=== PATIENT | female | born 1990 ===

== ENCOUNTER 2019-08-30 08:41 | Inpatient (IN) | payer MEDICAID ==
[~2019-08-30] VITALS: Ht 165.1 cm; Wt 85.5 kg
[2019-08-30] MEDS ORDERED: loperamide 2mg capsule PO PRN (11:45)
[2019-08-30] MEDS ORDERED: mag hydrox/Alum hydrox/simeth 30ml oral suspension PO PRN (11:45)
[2019-08-30] MEDS ORDERED: acetaminophen 325mg tablet PO PRN ×2 (11:45)
[2019-08-30] MEDS ORDERED: magnesium hydroxide 30ml (MOM) UD suspension PO PRN (11:45)
[2019-08-30] MEDS: NICOTINE POLACRILEX 2 MG LOZENGE MM PRN ×3 (13:16→17:50)
[2019-08-30] MEDS: LORazepam 1 MG tablet PO PRN ×2 (13:16→13:36)
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
[2019-08-30 19:47] VITALS: BP 114/78
[2019-08-30] MEDS: traZODone 50mg tablet PO SCH (20:22)
[2019-08-30] MEDS: quetiapine 100mg tablet PO SCH (20:23)
[2019-08-30] MEDS: levetiracetam 250mg tablet PO SCH (20:23)
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
[2019-08-31] MEDS: levetiracetam 250mg tablet PO SCH ×2 (07:22→20:03)
[2019-08-31] MEDS: nicotine 21mg patch - 24 hr TD SCH (07:23)
[2019-08-31] MEDS: LORazepam 1 MG tablet PO PRN ×2 (07:36→13:27)
[2019-08-31 08:00] VITALS: BP 102/71
[2019-08-31 08:01] LABS: CHOLESTEROL 110 MG/DL (0-200); HDL CHOLESTEROL 37 MG/DL (35-60); LDL CHOLESTEROL 64 MG/DL (50-100); TRIGLYCERIDES 77 MG/DL (20-135)
[2019-08-31 08:15] LABS: HEMOGLOBIN A1C 4.8 % (4.5-6.2)
[2019-08-31] MEDS: NICOTINE POLACRILEX 2 MG LOZENGE MM PRN ×3 (10:57→16:30)
--- NOTE | 2019-08-31 11:48 | NUR ---
Malnutrition consult: No past visits to assess for wt loss however per RN notes pt endorsing a good appetite which is evident with average 75% PO intake on regular diet as well as receiving snacks per RN notes likely meeting nutrient needs. Pt with no edema or decrease muscle strength. Pt currently does not meet criteria for malnutrition. Will continue to follow. Addendum: 08/31/19 at [address] Amended: Links added.
[2019-08-31] MEDS ORDERED: LEVE500T (12:09)
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
[2019-08-31 19:33] VITALS: BP 107/56
[2019-08-31] MEDS: traZODone 50mg tablet PO SCH (20:03)
[2019-08-31] MEDS: quetiapine 100mg tablet PO SCH (20:03)
[2019-08-31] MEDS: prazosin 1mg capsule PO SCH (21:00)
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
[2019-09-01] MEDS: levetiracetam 250mg tablet PO SCH ×2 (07:47→20:04)
[2019-09-01] MEDS: nicotine 21mg patch - 24 hr TD SCH (07:49)
[2019-09-01] MEDS ORDERED: venlafaxine XR 75mg capsule (Q24H) PO SCH (08:00)
[2019-09-01] MEDS ORDERED: EFFEXOR 75 MG PO SCH (08:00)
[2019-09-01 08:50] VITALS: BP 136/55
[2019-09-01] MEDS: LORazepam 1 MG tablet PO PRN (12:57)
[2019-09-01] MEDS: NICOTINE POLACRILEX 2 MG LOZENGE MM PRN ×2 (13:22→16:35)
--- NOTE | 2019-09-01 15:10 | NUR ---
Phone numbers: Radar Operator: Bret: Radar Operator : Nova: Radha: Nakul: [phone]
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
[2019-09-01 19:56] VITALS: BP 113/69
[2019-09-01] MEDS: traZODone 50mg tablet PO SCH (20:04)
[2019-09-01] MEDS: prazosin 1mg capsule PO SCH (20:04)
[2019-09-01] MEDS: quetiapine 100mg tablet PO SCH (20:04)
[2019-09-01] MEDS: topiramate 100mg tablet PO SCH (20:04)
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
[2019-09-02] MEDS: topiramate 100mg tablet PO SCH ×2 (07:14→19:06)
[2019-09-02] MEDS: levetiracetam 250mg tablet PO SCH ×2 (07:14→20:06)
[2019-09-02] MEDS: venlafaxine XR 75mg capsule (Q24H) PO SCH (07:14)
[2019-09-02] MEDS: nicotine 21mg patch - 24 hr TD SCH (07:16)
[2019-09-02 08:00] VITALS: BP 91/45
[2019-09-02] MEDS: NICOTINE POLACRILEX 2 MG LOZENGE MM PRN ×2 (11:19→13:37)
--- NOTE | 2019-09-02 12:14 | NUR ---
DISCHARGE PLANNING: Faxed RICH to Jing Estes to get information on Ryanne's placement Drug and alcohol counselor: Jing Estes phone number [phone], fax number [phone]
--- NOTE | 2019-09-02 15:00 | NUR ---
DISCHARGE PLANNING: MINESH Siddiqui, caser at [facility]. She reports that client came in for one triage appointment and is not established with care there yet, she will need to present for her intake appointment. She recommended calling Triage Connect Team at [phone]. Called and LVM
[2019-09-02] MEDS: LORazepam 1 MG tablet PO PRN (15:09)
--- NOTE | 2019-09-02 15:14 | NUR ---
DISCHARGE PLANNING: Called [facility] and left message with [facility] to call back.
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
[2019-09-02] MEDS: traZODone 50mg tablet PO SCH (19:06)
[2019-09-02] MEDS: hydrOXYzine 10 MG tablet PO PRN (19:10)
[2019-09-02] MEDS: prazosin 1mg capsule PO SCH (20:04)
[2019-09-02] MEDS: quetiapine 100mg tablet PO SCH (20:05)
[2019-09-02 20:47] VITALS: BP 119/64
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
[2019-09-03] MEDS: nicotine 21mg patch - 24 hr TD SCH (07:40)
[2019-09-03] MEDS: venlafaxine XR 75mg capsule (Q24H) PO SCH (07:41)
[2019-09-03] MEDS: topiramate 100mg tablet PO SCH ×2 (07:41→20:03)
[2019-09-03] MEDS: levetiracetam 250mg tablet PO SCH ×2 (07:42→20:05)
[2019-09-03 08:00] VITALS: BP 122/64
[2019-09-03] MEDS: NICOTINE POLACRILEX 2 MG LOZENGE MM PRN ×2 (09:22→12:17)
[2019-09-03] MEDS: hydrOXYzine 10 MG tablet PO PRN (11:32)
--- NOTE | 2019-09-03 12:02 | NUR ---
Initial: Pt admit with depression. Pt reports little appetite per H&P however currently documented with 75-100% PO intake meeting nutrient needs. LBM 09/02. No edema or wounds. No nutrition diagnosis at this time. Will continue to follow. Recommendations: 1) Continue regular diet 2) Bowel care PRN 3) Weekly wts Addendum: 09/03/19 at [address] Amended: Links added.
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
[2019-09-03 20:00] VITALS: BP 95/75
[2019-09-03] MEDS: traZODone 50mg tablet PO SCH (20:02)
[2019-09-03] MEDS: prazosin 1mg capsule PO SCH (20:03)
[2019-09-03] MEDS: quetiapine 100mg tablet PO SCH (20:05)
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
[2019-09-04] MEDS: topiramate 100mg tablet PO SCH ×2 (07:20→20:17)
[2019-09-04] MEDS: levetiracetam 250mg tablet PO SCH ×2 (07:20→20:17)
[2019-09-04] MEDS: venlafaxine XR 75mg capsule (Q24H) PO SCH (07:20)
[2019-09-04] MEDS: nicotine 21mg patch - 24 hr TD SCH (07:20)
[2019-09-04 08:34] VITALS: BP 108/51
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
[2019-09-04] MEDS: NICOTINE POLACRILEX 2 MG LOZENGE MM PRN (17:11)
[2019-09-04 19:57] VITALS: BP 111/68
[2019-09-04] MEDS: quetiapine 100mg tablet PO SCH (20:17)
[2019-09-04] MEDS: traZODone 50mg tablet PO SCH (20:17)
[2019-09-04] MEDS: prazosin 1mg capsule PO SCH (20:17)
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
[2019-09-05] MEDS: venlafaxine XR 75mg capsule (Q24H) PO SCH (07:25)
[2019-09-05] MEDS: topiramate 100mg tablet PO SCH ×2 (07:25→20:03)
[2019-09-05] MEDS: levetiracetam 250mg tablet PO SCH ×2 (07:25→20:02)
[2019-09-05] MEDS: nicotine 21mg patch - 24 hr TD SCH (07:26)
[2019-09-05 08:36] VITALS: BP 101/63
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
[2019-09-05] MEDS: quetiapine 100mg tablet PO SCH (20:02)
[2019-09-05] MEDS: prazosin 1mg capsule PO SCH (20:02)
[2019-09-05] MEDS: traZODone 50mg tablet PO SCH (20:03)
[2019-09-05 20:37] VITALS: BP 101/55
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
[2019-09-06] MEDS: NICOTINE POLACRILEX 2 MG LOZENGE MM PRN (06:20)
[2019-09-06] MEDS: nicotine 21mg patch - 24 hr TD SCH (07:30)
[2019-09-06] MEDS: levetiracetam 250mg tablet PO SCH (07:31)
[2019-09-06] MEDS: venlafaxine XR 75mg capsule (Q24H) PO SCH (07:31)
[2019-09-06] MEDS: topiramate 100mg tablet PO SCH (07:31)
[2019-09-06 08:00] VITALS: BP 96/49
[2019-09-06] MEDS ORDERED: TOP100T PO (11:05)
[2019-09-06] MEDS ORDERED: QUET100T33 PO (11:05)
[2019-09-06] MEDS ORDERED: LEVE500T PO (11:05)
[2019-09-06] MEDS ORDERED: VENL150T3 PO (11:05)
[2019-09-06] MEDS ORDERED: PRAZ2CAP2 PO (11:05)
[2019-09-06] MEDS ORDERED: HYDR-3717 PO (11:05)
--- NOTE | 2019-09-06 13:54 | NUR ---
Discharge: Pt dc'd to her senior architectural designer's house in [place] at 1320 with [facility] otr hazmat company driver. All pt belongings returned to pt including all valuables and pt agreed she received all her stuff and signed for it. Pt has bright affect and is looking forward to dc. Pt denies S.I. D/C instructions, including f/u appt and medications explained to the pt, she verbalized understanding and she signed agreement. Pt sent with copies. Smoking cessation education sent with the patient. Pt sent with signed prescriptions.
== END 2019-09-06 13:18 | disposition short-term general hospital (02) | DRG 751 ==
LOC: ADULT MH 08:41
PROVIDERS: ADMIT Psychiatry & Neurology Psychiatry; ATTEND Psychiatry & Neurology Psychiatry
DX: F33.2 Major depressive disorder, recurrent severe without psychotic features (principal); R45.851 Suicidal ideations; F43.10 Post-traumatic stress disorder, unspecified; J45.909 Unspecified asthma, uncomplicated; F11.10 Opioid abuse, uncomplicated; F15.10 Other stimulant abuse, uncomplicated; F17.210 Nicotine dependence, cigarettes, uncomplicated; Z79.899 Other long term (current) drug therapy; Z91.410 Personal history of adult physical and sexual abuse; Z59.0 Homelessness
CPT/HCPCS: 36415; 80061; 83036; 87081; 99285